=== PATIENT | male | born 1985 | race Caucasian/White ===

== ENCOUNTER 2018-08-15 01:11 | Inpatient (IN) | payer MEDICAID ==
[2018-08-15] VITALS (10 sets, daily range): BP systolic 137–174; BP diastolic 91–128
[~2018-08-15] VITALS: Ht 182.9 cm; Wt 65.5 kg
[~2018-08-15 01:11] MED LIST: CEFD300C37 PO; DICY10CA53 PO; INSU100V8 SQ; LISI2.5T PO; LORA-445 PO; METR500T PO; PANT40TA3 PO
--- NOTE | 2018-08-15 01:32 | NUR ---
BIB HELICOPTER. PT HAS UNCONTROLE DM. PT HAS LOW BS(IT WAS 23 AT HOME). 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 C/O WEAKNESS/ANEMIA WELL. BLOOD TRANSUFUION CONPLETED CREDIT ASSISTANT. BS 80 HERE. PT'S AOX4. RESPS EVEN AND UNLABORED. BP/SPO2 MONITORS IN PLACE. CALL LIGHT WITHIN REACH. EDMD AT BEDISIDE TO EVALUATE.
--- NOTE | 2018-08-15 01:38 | NUR ---
PT PROVIDED SANDWHICH AT THIS TIME. PT USED URINAL. UA SENT.
[2018-08-15 01:51] LABS: MICROSCOPIC AUTO
[2018-08-15 01:52] LABS: CULTURE INDICATED? NO
[2018-08-15] MEDS ORDERED: D5%-0.45% NACL 1,000 ML IV SCH (02:00)
[2018-08-15] MEDS ORDERED: TAMSULOSIN 0.4 MG CAP.ER.24H PO ONE (02:00)
--- NOTE | 2018-08-15 02:02 | NUR ---
REPORT GIVEN TO ZAKIYA LOPEZ. ALL QUESTIONS ANSWERED.
[2018-08-15 02:58] LABS: BASOPHILS # (AUTO) 0.04 x10^3/uL (0-0.1); BASOPHILS % (AUTO) 1 % (0-1); EOSINOPHILS # (AUTO) 0.08 x10^3/uL (0-0.4); EOSINOPHILS % (AUTO) 1 % (1-7); LYMPHOCYTES # (AUTO) 2.71 x10^3/uL (1-3.4); LYMPHOCYTES % (AUTO) 40 % (22-44); MD NO; MEAN CORPUSCULAR HEMOGLOBIN 28.8 pg (27.5-34.5); MEAN CORPUSCULAR HGB CONC 32.6 g/dL (33.2-36.2); MEAN CORPUSCULAR VOLUME 88.5 fL (81-97); MEAN PLATELET VOLUME 7.6 fL (7.4-10.4); MONOCYTES # (AUTO) 0.65 x10^3/uL (0.2-0.8); MONOCYTES % (AUTO) 10 % (2-9); NEUTROPHILS % (AUTO) 49 % (42-75); PLATELET COUNT 193 x10^3/uL (130-400); RED BLOOD COUNT 4.49 x10^6/uL (4.38-5.82); RED CELL DISTRIBUTION WIDTH 17.1 % (9.4-14.8)
[2018-08-15 03:08] LABS: ALBUMIN 2.4 g/dL (3.4-5.0); ANION GAP 4 mmol/L (5-15); CALCIUM 8.3 mg/dL (8.5-10.1); CHLORIDE 107 mmol/L (98-107)
[2018-08-15 03:12] LABS: FREE T4 (FREE THYROXINE) 0.91 ng/dL (0.76-1.46); TROPONIN I < 0.015 ng/mL (0.000-0.045)
[2018-08-15 03:17] LABS: THYROID STIMULATING HORMONE 0.678 mIU/L (0.358-3.740)
[2018-08-15] MEDS: DEXTROSE 50%, 50ML SYRINGE IVPush PRN (03:17)
[2018-08-15] MEDS ORDERED: DEXTROSE 4 GM TAB.CHEW PO PRN (03:30)
[2018-08-15] MEDS ORDERED: GLUCAGON 1 MG IM PRN (03:30)
[2018-08-15 03:49] LABS: AMPHETAMINE SCREEN, URINE Negative (Negative); BARBITURATE SCREEN, URINE Positive (Negative); BENZODIAZEPINE SCREEN, URINE Negative (Negative); CANNABINOID SCREEN, URINE Positive (Negative); COCAINE SCREEN, URINE Negative (Negative); METHADONE SCREEN, URINE Negative (Negative); OPIATE SCREEN, URINE Negative (Negative)
[2018-08-15] MEDS ORDERED: CARVEDILOL 6.25 MG TABLET PO SCH (06:00)
[2018-08-15] MEDS: LEVOTHYROXINE 75 MCG TABLET PO SCH (06:05)
[2018-08-15] MEDS ORDERED: FAMOTIDINE 20 MG TABLET PO SCH (09:00)
[2018-08-15] MEDS ORDERED: CLON0.1T22 PO (10:23)
[2018-08-15] MEDS ORDERED: LEVO75TA5 PO (10:23)
[2018-08-15] MEDS ORDERED: INSU100I11 SC (10:23)
[2018-08-15] MEDS ORDERED: METO10TA82 PO (10:23)
[2018-08-15] MEDS ORDERED: INSU100V8 SQ (10:23)
[2018-08-15] MEDS ORDERED: DIPH25CA61 PO (10:23)
[2018-08-15] MEDS ORDERED: DULO30CA2 PO (10:23)
[2018-08-15] MEDS ORDERED: OXCA150T3 PO (10:23)
[2018-08-15] MEDS ORDERED: LOSA100T14 PO (10:23)
[2018-08-15] MEDS ORDERED: TRAZ50TA66 PO (10:23)
[2018-08-15] MEDS ORDERED: CLON1TAB11 PO (10:23)
[2018-08-15] MEDS ORDERED: LURA60TA PO (10:23)
[2018-08-15] MEDS ORDERED: SUCR1TAB33 PO (10:23)
[2018-08-15] MEDS ORDERED: CARV25TA12 PO (10:23)
[2018-08-15] MEDS ORDERED: TAMS-11 PO (10:23)
[2018-08-15] MEDS ORDERED: GABA300C10 PO (10:23)
[2018-08-15] MEDS ORDERED: FAMO40TA61 PO (10:23)
[2018-08-15] MEDS: OXCARBAZEPINE 150 MG TABLET PO SCH ×2 (10:31→21:19)
[2018-08-15] MEDS: SODIUM CHLORIDE FLUSH 10ML SYR IVF SCH ×2 (10:31→21:19)
[2018-08-15] MEDS: SUCRALFATE 1 GM/10 ML UDC PO SCH ×3 (12:34→21:19)
[2018-08-15] MEDS: ENALAPRILAT 1.25 MG/ML, 2ML IV PRN (14:28)
[2018-08-15] MEDS: LOSARTAN 50MG TABLET PO SCH (14:57)
[2018-08-15] MEDS ORDERED: ACETAMINOPHEN 500 MG TABLET PO PRN (15:00)
[2018-08-15] MEDS ORDERED: METOCLOPRAMIDE 5 MG/ML, 2ML IVPush PRN (15:00)
[2018-08-15 15:36] LABS: ALBUMIN 2.2 g/dL (3.4-5.0)
[2018-08-15 15:38] LABS: BILIRUBIN, DIRECT < 0.1 mg/dL (0.1-0.2)
[2018-08-15] MEDS: hydrALAzine 20 MG/ML, 1ML IV PRN (15:49)
[2018-08-15 16:05] LABS: ALANINE AMINOTRANSFERASE 105 U/L (12-78); ALKALINE PHOSPHATASE 147 U/L (45-117); BILIRUBIN,INDIRECT 0.1 mg/dL (0.0-2.0); BILIRUBIN,TOTAL 0.2 mg/dL (0.2-1.0); TOTAL PROTEIN 5.2 g/dL (6.4-8.2)
[2018-08-15] MEDS ORDERED: MORPHINE SULFATE 4 MG/ML, 1ML IVPush ONE (16:30)
[2018-08-15] MEDS ORDERED: CARVEDILOL 12.5 MG TABLET PO ONE (16:30)
[2018-08-15] MEDS: INSULIN LISPRO 100 UNITS/ML, PEN SQ-INSULIN SCH ×2 (16:42→21:10)
[2018-08-15] MEDS ORDERED: CARVEDILOL 12.5 MG TABLET PO SCH (18:00)
[2018-08-15] MEDS ORDERED: BUPR1FIL3 SL (19:19)
[2018-08-15] MEDS ORDERED: TRAZODONE 50MG TABLET ONE (21:12)
[2018-08-15] MEDS: PANTOPROZOLE 40MG TABLET PO SCH (21:19)
[2018-08-15] MEDS ORDERED: TRAZODONE 50MG TABLET PO PRN (21:30)
[2018-08-15] MEDS: ONDANSETRON 2MG/ML, 2ML IVPush PRN (21:33)
[2018-08-16] MEDS ORDERED: D5%-0.45% NACL 1,000 ML IV SCH ×2 (02:00)
[2018-08-16 02:26] VITALS: BP 168/119
[2018-08-16 05:34] LABS: BASOPHILS # (AUTO) 0.05 x10^3/uL (0-0.1); BASOPHILS % (AUTO) 1 % (0-1); EOSINOPHILS # (AUTO) 0.11 x10^3/uL (0-0.4); EOSINOPHILS % (AUTO) 2 % (1-7); LYMPHOCYTES # (AUTO) 2.61 x10^3/uL (1-3.4); LYMPHOCYTES % (AUTO) 37 % (22-44); MD NO; MEAN CORPUSCULAR HGB CONC 33.2 g/dL (33.2-36.2); MEAN CORPUSCULAR VOLUME 87.5 fL (81-97); MEAN PLATELET VOLUME 7.7 fL (7.4-10.4); MONOCYTES # (AUTO) 0.63 x10^3/uL (0.2-0.8); MONOCYTES % (AUTO) 9 % (2-9); NEUTROPHILS # (AUTO) 3.72 x10^3/uL (1.8-6.8); NEUTROPHILS % (AUTO) 52 % (42-75); PLATELET COUNT 213 x10^3/uL (130-400); RED BLOOD COUNT 4.38 x10^6/uL (4.38-5.82); RED CELL DISTRIBUTION WIDTH 16.7 % (9.4-14.8)
[2018-08-16 05:40] LABS: CHLORIDE 103 mmol/L (98-107); HEMOGLOBIN A1C 7.8 % (4.2-6.3)
[2018-08-16 05:46] LABS: ALANINE AMINOTRANSFERASE 90 U/L (12-78); ALBUMIN 2.1 g/dL (3.4-5.0); ALKALINE PHOSPHATASE 142 U/L (45-117); ANION GAP 6 mmol/L (5-15); BILIRUBIN,TOTAL 0.4 mg/dL (0.2-1.0); CALCIUM 7.8 mg/dL (8.5-10.1); CREATININE 1.09 mg/dL (0.7-1.3); TOTAL PROTEIN 5.1 g/dL (6.4-8.2)
[2018-08-16] MEDS ORDERED: PANTOPROZOLE 40MG TABLET PO SCH (06:00)
[2018-08-16] MEDS: SUCRALFATE 1 GM/10 ML UDC PO SCH ×4 (06:16→21:12)
[2018-08-16] MEDS: LEVOTHYROXINE 75 MCG TABLET PO SCH (06:16)
[2018-08-16 07:10] VITALS: BP 186/125
[2018-08-16] MEDS: CARVEDILOL 25 MG TABLET PO SCH ×2 (07:58→17:54)
[2018-08-16] MEDS: PANTOPROZOLE 40MG TABLET PO SCH ×2 (07:58→21:12)
[2018-08-16] MEDS: LOSARTAN 50MG TABLET PO SCH (07:58)
[2018-08-16] MEDS: OXCARBAZEPINE 150 MG TABLET PO SCH ×2 (07:58→21:12)
[2018-08-16] MEDS: SODIUM CHLORIDE FLUSH 10ML SYR IVF SCH ×2 (07:59→21:12)
[2018-08-16] MEDS: ONDANSETRON 2MG/ML, 2ML IVPush PRN (07:59)
[2018-08-16] MEDS: hydrALAzine 20 MG/ML, 1ML IV PRN ×2 (10:13→21:12)
[2018-08-16] MEDS: INSULIN LISPRO 100 UNITS/ML, PEN SQ-INSULIN SCH ×4 (10:18→19:33)
[2018-08-16 10:57] VITALS: BP 179/128
[2018-08-16 10:59] VITALS: BP 175/123
[2018-08-16] MEDS ORDERED: MAALOX/HYOSCYAMINE/LIDOCAINE 45 ML BTL PO ONE (11:30)
[2018-08-16] MEDS: MORPHINE SULFATE 4 MG/ML, 1ML IVPush PRN ×3 (12:32→21:12)
[2018-08-16 13:00] VITALS: BP 177/119
[2018-08-16] MEDS ORDERED: INSULIN LISPRO 100 UNITS/ML, PEN SQ-INSULIN ONE (18:00)
[2018-08-16 19:14] VITALS: BP 192/149
[2018-08-16] MEDS: ENALAPRILAT 1.25 MG/ML, 2ML IV PRN (19:23)
[2018-08-16] MEDS: INSULIN GLARGINE 100 UNITS/ML, PEN SQ-INSULIN SCH (22:00)
[2018-08-17] MEDS: MORPHINE SULFATE 4 MG/ML, 1ML IVPush PRN ×5 (01:09→23:53)
[2018-08-17 02:04] VITALS: BP 141/95
[2018-08-17] MEDS: DEXTROSE 50%, 50ML SYRINGE IVPush PRN ×2 (02:25→02:43)
[2018-08-17] MEDS: LEVOTHYROXINE 75 MCG TABLET PO SCH (05:13)
[2018-08-17] MEDS: CARVEDILOL 25 MG TABLET PO SCH ×2 (05:14→16:25)
[2018-08-17 05:18] VITALS: BP 180/136
[2018-08-17] MEDS: hydrALAzine 20 MG/ML, 1ML IV PRN (05:30)
[2018-08-17 06:52] VITALS: BP 172/124
[2018-08-17] MEDS: INSULIN LISPRO 100 UNITS/ML, PEN SQ-INSULIN SCH ×4 (07:00→19:32)
[2018-08-17] MEDS: BUPRENORPHINE/NALOXONE 2-0.5MG SL SCH ×2 (08:19→09:00)
[2018-08-17] MEDS: OXCARBAZEPINE 150 MG TABLET PO SCH ×2 (08:20→19:45)
[2018-08-17] MEDS: SUCRALFATE 1 GM/10 ML UDC PO SCH ×4 (08:20→19:45)
[2018-08-17] MEDS: PANTOPROZOLE 40MG TABLET PO SCH ×2 (08:20→19:45)
[2018-08-17] MEDS: LOSARTAN 50MG TABLET PO SCH (08:20)
[2018-08-17] MEDS: ENALAPRILAT 1.25 MG/ML, 2ML IV PRN ×2 (08:21→19:44)
[2018-08-17] MEDS ORDERED: PROPOFOL 10 MG/ML, 20ML ONE (08:40)
[2018-08-17] MEDS ORDERED: PROPOFOL 100 ML ONE (08:40)
[2018-08-17] MEDS ORDERED: LIDOCAINE-MPF 2% ,5ML ONE (08:40)
[2018-08-17] MEDS: SODIUM CHLORIDE FLUSH 10ML SYR IVF SCH ×2 (09:00→19:45)
[2018-08-17] MEDS ORDERED: OXYcodone 5 MG/5 ML ORAL.SOL UDC PO PRN (11:30)
[2018-08-17] MEDS ORDERED: ONDANSETRON ODT 8 MG PO PRN (11:30)
[2018-08-17] MEDS ORDERED: FENTANYL PF 100 MCG/2ML IV PRN (11:30)
[2018-08-17] MEDS ORDERED: LORazepam 2 MG/ML, 1ML IVPush PRN (11:30)
[2018-08-17] MEDS ORDERED: PROMETHAZINE 25 MG/ML, 1ML IV PRN (11:30)
[2018-08-17] MEDS ORDERED: ACETAMINOPHEN 325 MG TABLET PO PRN (11:30)
[2018-08-17] MEDS ORDERED: ONDANSETRON 2MG/ML, 2ML IV PRN (11:30)
[2018-08-17] MEDS ORDERED: OXYcodone 5 MG/5 ML ORAL.SOL UDC ONE (11:36)
[2018-08-17 12:47] VITALS: BP 184/128
[2018-08-17] MEDS: INSULIN GLARGINE 100 UNITS/ML, PEN SQ-INSULIN SCH (19:31)
[2018-08-17 19:43] VITALS: BP 177/127
[2018-08-17] MEDS: ONDANSETRON 2MG/ML, 2ML IVPush PRN (19:44)
[2018-08-17 21:36] VITALS: BP 156/103
[2018-08-18 01:42] VITALS: BP 180/114
[2018-08-18] MEDS: hydrALAzine 20 MG/ML, 1ML IV PRN (01:59)
[2018-08-18] MEDS: LEVOTHYROXINE 75 MCG TABLET PO SCH (05:32)
[2018-08-18] MEDS: ENALAPRILAT 1.25 MG/ML, 2ML IV PRN (05:33)
[2018-08-18] MEDS: CARVEDILOL 25 MG TABLET PO SCH (05:33)
[2018-08-18] MEDS: INSULIN LISPRO 100 UNITS/ML, PEN SQ-INSULIN SCH ×2 (07:00→11:00)
[2018-08-18 07:30] VITALS: BP 120/80
[2018-08-18] MEDS: SUCRALFATE 1 GM/10 ML UDC PO SCH ×2 (08:37→11:45)
[2018-08-18] MEDS: OXCARBAZEPINE 150 MG TABLET PO SCH (08:38)
[2018-08-18] MEDS: LOSARTAN 50MG TABLET PO SCH (08:38)
[2018-08-18] MEDS: PANTOPROZOLE 40MG TABLET PO SCH (08:38)
[2018-08-18] MEDS: MORPHINE SULFATE 4 MG/ML, 1ML IVPush PRN (08:38)
[2018-08-18] MEDS: SODIUM CHLORIDE FLUSH 10ML SYR IVF SCH (08:38)
[2018-08-18] MEDS: BUPRENORPHINE/NALOXONE 2-0.5MG SL SCH (08:38)
[2018-08-18] MEDS ORDERED: SUCR1ORA5 PO (09:58)
[2018-08-18] MEDS ORDERED: PANT40TA5 PO (09:58)
== END 2018-08-18 12:15 | disposition home or self-care (01) | DRG 380 ==
LOC: ED 01:41 → 4EST 01:42 → DCLOUNGE 08-18 12:09
PROVIDERS: ADMIT Internal Medicine; ATTEND Internal Medicine
PROC: 0DB68ZX Excision of Stomach, Via Natural or Artificial Opening Endoscopic, Diagnostic (ICD-10-PCS; principal; 2018-08-17 10:30)
DX: K22.10 Ulcer of esophagus without bleeding (principal); G92 Toxic encephalopathy; E46 Unspecified protein-calorie malnutrition; Z68.1 Body mass index [BMI] 19.9 or less, adult; I95.9 Hypotension, unspecified; E10.649 Type 1 diabetes mellitus with hypoglycemia without coma; D64.9 Anemia, unspecified; E03.9 Hypothyroidism, unspecified; E86.1 Hypovolemia; F17.210 Nicotine dependence, cigarettes, uncomplicated; F20.9 Schizophrenia, unspecified; F31.9 Bipolar disorder, unspecified; G31.84 Mild cognitive impairment of uncertain or unknown etiology; I10 Essential (primary) hypertension; K21.9 Gastro-esophageal reflux disease without esophagitis; K29.50 Unspecified chronic gastritis without bleeding; K44.9 Diaphragmatic hernia without obstruction or gangrene; K59.00 Constipation, unspecified; N40.0 Benign prostatic hyperplasia without lower urinary tract symptoms; Z79.4 Long term (current) use of insulin; Z79.899 Other long term (current) drug therapy; Z83.3 Family history of diabetes mellitus; Z91.19 Patient's noncompliance with other medical treatment and regimen
CPT/HCPCS: 36415; 74018; 99285; J0572; J3490; 76700; 80048; 80053; 80076; 80307; 81001; 82040; 82140; 82607; 82947; 82962; 83036; 83690; 83880; 84439; 84443; 84484; 85025; 88305; 93005; 93306; 96374; G0378; J2405; J2704; J0360; J1815; J2270